=== PATIENT | female | born 1990 | race Caucasian/White ===

== ENCOUNTER 2020-03-17 14:59 | Outpatient (CLI) | payer OTHER ==
[~2020-03-17] VITALS: Ht 165.1 cm; Wt 111.1 kg
[2020-03-17] MEDS ORDERED: PRENATAL (15:27)
[2020-03-17 16:06] LABS: URINE PROTEIN:CREAT RATIO 0.2 (0.00-0.14)
--- NOTE | 2020-03-17 16:12 | NUR ---
1520 PATIENT HERE FOR NONSTRESS TEST. 24 URINE TURNED IN FOR PROTIEN, SERIAL BP. ALL BP WNL. EFM ON FHT 130 GOOD ACCELERATIONS NOTED. BABY VEREY ACTIVE. DR SALDIVAR REVIEWED MONITOR STRIP. 1600 ALL DISCHARGE INSTRUCTIONS GIVEN TO PATIENT WITH VERBAL UNDERSTANDING. DENIES NEEDS. BP 127/84
== END 2020-03-17 16:00 | disposition home or self-care (01) ==
LOC: LDRO 14:59 → LDR 15:02 → LDRO 16:00
PROVIDERS: Student in an Organized Health Care Education/Training Program
DX: O36.8931 Maternal care for other specified fetal problems, third trimester, fetus 1 (principal); Z3A.31 31 weeks gestation of pregnancy
CPT/HCPCS: OP

== ENCOUNTER 2020-05-23 11:02 | Inpatient (IN) | payer OTHER ==
[~2020-05-23] VITALS: Ht 165.1 cm; Wt 114.5 kg
[2020-05-23] VITALS (48 sets, daily range): BP systolic 133–182; BP diastolic 74–113; PULSE 71–115; TEMP 98.2–98.8
[~2020-05-23 11:02] MED LIST: PRENATAL
--- NOTE | 2020-05-23 11:43 | NUR ---
Pt here for labor check. Reports she has been leaking fluid since 1600 yesterday and having occasional non-painful contractions. FHT's found in the 130's with minimal to moderate variability and one acceleration. No contractions observed or palpated. Amniotrace negative. SVE /-3. Assessment completed. Vitals obtained. BP 142/100. Pt reports she is anxious, also states BP has been elevated off and on this .
--- NOTE | 2020-05-23 12:00 | NUR ---
PHONED DR SALDIVAR AT 1156. ORDER RECEIVED TO DO AMNISURE. AMNISURE PERFORMED AT 1200 AND SENT TO LAB. ALSO CHANGED BP MONITORING TO EVERY 15 MINUTES. PT'S IS GOING TO "DOCTOR" THE SORE ON HER LEG SINCE THE GAUZE AND TAPE HAVE CAME OFF. SORE APPEARS TO BE RED AND APPROX THE SIZE OF A NICKEL WITH NO DRAINAGE.
--- NOTE | 2020-05-23 13:00 | NUR ---
DR SALDIVAR CALLED HERE AT 1255 AND STATES AMNISURE IS POSITIVE. ORDERS RECEIVED TO ADMIT PT FOR LABOR AND DELIVERY.
--- NOTE | 2020-05-23 13:45 | NUR ---
IV STARTED IN LEFT HAND WITH LR INFUSING WITHOUT DIFFICULTY.
--- NOTE | 2020-05-23 14:00 | NUR ---
PITOCIN STARTED AT 2MU AT 1347 PER ORDER. PLAN OF CARE REVIEWED WITH PT AND WHO VERBALIZE UNDERSTANDING.
[2020-05-23 14:22] LABS: COLLECTION METHOD CLEAN CATCH
[2020-05-23 14:26] LABS: BASO % 0.1 % (0.0-2.0); EOS # 0.1 (0.0-0.7); EOS % 0.7 % (0-4.0); GRAN # 5.7 (1.4-6.5); GRAN % 76.8 % (42.2-75.2); HEMATOCRIT 37.9 % (37.0-47.0); HEMOGLOBIN 12.7 g/dl (12.5-16.0); LYMPH # 1.2 (1.2-3.4); LYMPH % 15.5 % (20.0-51.0); MEAN CELL VOLUME 84 fl (80.0-100.0); MEAN CORPUSCULAR HEMOGLOBIN 28 pg (27.0-31.0); MEAN CORPUSCULAR HGB CONC 34 g/dl (33.0-37.0); MEAN PLATELET VOLUME 9.4 fl (7.4-10.4); MONO # 0.5 (0.1-0.6); MONO % 6.5 % (1.7-9.3); PLATELET COUNT 294 K/mm3 (130-400); RED BLOOD COUNT 4.53 M/mm3 (4.10-5.30); REDCELL DISTRIBUTION WIDTH-CV 14.7 % (11.5-14.5)
[2020-05-23 14:34] LABS: MUCOUS Present /lpf; PH 7 (5-8); SQUAMOUS EPITHELIAL 0-2 /hpf; URINE APPEARANCE Clear; URINE BACTERIA None Seen /hpf; URINE BILIRUBIN Negative (NEGATIVE); URINE BLOOD Negative (NEGATIVE); URINE COLOR Yellow; URINE GLUCOSE Negative (NEGATIVE); URINE KETONE Negative (NEGATIVE); URINE LEUKOCYTE ESTERASE Negative (NEGATIVE); URINE NITRATE Negative (NEGATIVE); URINE PROTEIN(semi-quant) Negative (NEGATIVE); URINE RBC 0-2 /hpf; URINE UROBILINOGEN Negative (NEGATIVE); URINE WBC 0-2 /hpf
[2020-05-23 14:40] LABS: ALBUMIN 3.5 gm/dL (3.5-5.0); BILIRUBIN,TOTAL 0.2 mg/dL (0.0-1.0); CALCIUM 9.4 mg/dL (8.4-10.2); CREATININE, serum 0.55 (0.52-1.25); POTASSIUM 3.5 mmol/L (3.4-5.0); TOTAL PROTEIN 6.8 gm/dL (6.4-8.2)
--- NOTE | 2020-05-23 15:15 | NUR ---
WHEN ADVISING PT OF NEED FOR ANTIBIOTICS AND PT REFUSES INFORMED PT AND SPOUSE PROLONGED RUPTURE OF MEMBRANES COULD LEAD TO A SERIOUS INFECTION IN HER AND/OR THE BABY. PT STILL REFUSES ANTIBIOTICS AT THIS TIME.
--- NOTE | 2020-05-23 15:15 | NUR ---
PT ADVISED DR MAURER WANTS TO START ANTIBIOTICS DUE TO PROLONGED RUPTURE OF MEMBRANES. PT REFUSES ANTIBIOTICS AT THIS TIME AND STATES SHE MIGHT START THEM LATER.
--- NOTE | 2020-05-23 15:30 | NUR ---
PT WANTING TO STAND UP OR SIT ON BIRTHING BALL. INFORMED HER THAT IS ACCEPTABLE LONG FHT'S CAN BE MONITORED . ALSO ADVISED HER BP IS VERY HIGH AND VERY DANGEROUS. WILL MONITOR ONE MORE IN 15 MINUTES AND IF IT IS HIGH WILL PHONE DR AND LIKELY WILL GET AN ORDER FOR BP MEDICATION. PT DOES NOT REPLY WHEN INFORMED OF THIS.
--- NOTE | 2020-05-23 16:15 | NUR ---
CALLED DR MAURER AT 1607 WITH LAST 3BP'S: 173/113, 143/102, 161/105. ORDER RECEIVED TO GIVE 10MG LABETALOL IV NOW AND CAN REPEAT IN 15 MINUTES. DISCUSSED LABETALOL WITH PT WHO AGREES TO THE ADMINISTRATION.
--- NOTE | 2020-05-23 16:30 | NUR ---
SVE BY Isela BROWN RN, REMAINS UNCHANGED: REPORTS ALMOST 1CM/75/-3, CANNOT INSERT ALL OF ONE FINGER THROUGH THE CERVIX. PREVIOUS SVE BY Chinmay MARTINO RN ON ADMISSION. BP REMAINS ELEVATED. WILL ADMINISTER SECOND DOSE OF LABETALOL. PT BREATHING THROUGH CONTRACTIONS.
--- NOTE | 2020-05-23 18:20 | NUR ---
Monitors removed. Pt up to bathroom to void. Pt states she would like epidural at this time. Barrett Celaya CRNA already en route to hospital for other case. Will updated on arrival.
--- NOTE | 2020-05-23 18:35 | NUR ---
183 - Pt positioned to sitting on edge of bed. Barrett Celaya CRNA at bedside. Epidural procedure, risks, and benefits explained to patient and spouse. Pt verbalized understanding. 1834 - Single shot by Jayde Celaya CRNA. Pt denies any adverse reactions. Difficutly tracing FHR due to maternal positioning. RN attempt to hand hold US. 1841 - Pt positioned to wedge left. Reviewed safety precautions and plan of care with patient and spouse. Bed in low and locked position. Call light within reach. See anesthesia record.
--- NOTE | 2020-05-23 20:25 | NUR ---
Hernandez catheter placed at this time. Clear, yellow urine returned. Placed to dependent drainage. Secured to leg with statlock. SVE at this time. /-3, bulging bag of water, vertex position. After positioning patient in bed for comfort, pt reports feeling large gush of fluid. Moderate amount of clear fluid noted. Pericare provided.
--- NOTE | 2020-05-23 21:10 | NUR ---
2104 - Pts BP 169/104 then 163/96 15 minutes later. IV labetalol given at this time, see MAR and physician notification. 2109 - Recurrent early decelerations down to 120 bpm noted with contractions. Pt repositioned to wedge left.
--- NOTE | 2020-05-23 21:30 | NUR ---
Recurrent early and variable decelerations down to 90-120 bpm noted with contractions. SVE 6//-3. Pt repositioned to wedge right with pillow support.
--- NOTE | 2020-05-23 23:05 | NUR ---
2305 - SVE /-3 2320 - Pt continues to have recurrent variable decelerations down to 100 bpm. Attempted to reposition patient to sitting up in bed but patient became nauseous, repositioned to wedge left. Pitocin decreased to 10 mu/min.
[2020-05-24] VITALS (36 sets, daily range): BP systolic 106–174; BP diastolic 71–103; PULSE 70–126; TEMP 97.8–99.3
--- NOTE | 2020-05-24 01:15 | NUR ---
0105 - SVE 8-9//-1, pt repositioned to wedge right for comfort. 0110 - Late prolonged deceleration down to 90 bpm. 0115 - Pt repositioned to wedge left. 0119 - Pitocin off. 0120 - FHR back to baseline of 120 bpm.
--- NOTE | 2020-05-24 04:22 | NUR ---
0422 - SVE /0. Pt educated on pushing techniques, verbalized understanding. 0425 - Pt positioned into footplates. Hernandez cather removed, 900 mL clear yellow urine. 0431 - Initial push at this time. Pt pushing well with contractions.
--- NOTE | 2020-05-24 05:00 | NUR ---
Pitocin restarted at 2 mu/min.
--- NOTE | 2020-05-24 06:00 | NUR ---
Pt continues to push well with contractions. Small crown with pushes.
--- NOTE | 2020-05-24 06:30 | NUR ---
PT PUSHING WITH CONTRACTIONS. DR MAURER HERE AT 0624. POSITIONED AND PREPPED FOR DELIVERY. OF FEMALE AT 062O BY DR MAURER. PITOCIN STOPPED AFTER DELIVERY OF . BABY TO MOM'S ABDOMEN AFTER DELIVERY.
--- NOTE | 2020-05-24 09:15 | NUR ---
Pt up to bathroom with assist, voids 1000ml urine. Fundus firm, bleeding WNL. Pericare instructions given and new gown, underwear and ice pack in place. Pt up and ambulates to room 207. Denies any pain.
[2020-05-25] VITALS: BP 142/85; PULSE 93; TEMP 97.7
[2020-05-25 04:15] VITALS: BP 151/93; PULSE 92; TEMP 97.6
[2020-05-25 08:30] VITALS: BP 169/97; PULSE 93; TEMP 97.4
[2020-05-25] MEDS ORDERED: IBU800 M1 PO (08:36)
--- NOTE | 2020-05-25 09:01 | NUR ---
Initial visit; Parents thanked [employer] for offering congratulations and God's blessings for the of their daughter. [employer] thanked family for choosing [facility].
[2020-05-25 16:42] VITALS: BP 155/88; PULSE 92; TEMP 97.6
== END 2020-05-25 17:50 | disposition home or self-care (01) | DRG 806 ==
LOC: LDRO 11:02 → OB 13:12 → LDR 13:12 → OB 05-24 09:15
PROVIDERS: ADMIT Student in an Organized Health Care Education/Training Program
PROC: 10E0XZZ Delivery of Products of Conception, External Approach (ICD-10-PCS; principal; 2020-05-24)
PROC: 0KQM0ZZ Repair Perineum Muscle, Open Approach (ICD-10-PCS; 2020-05-24)
DX: O42.90 Premature rupture of membranes, unspecified as to length of time between rupture and onset of labor, unspecified weeks of gestation (principal); O10.92 Unspecified pre-existing hypertension complicating childbirth; Z37.0 Single live birth; O48.0 Post-term pregnancy; Z3A.41 41 weeks gestation of pregnancy; O99.214 Obesity complicating childbirth; E66.9 Obesity, unspecified; O70.1 Second degree perineal laceration during delivery; O99.52 Diseases of the respiratory system complicating childbirth; J45.909 Unspecified asthma, uncomplicated; Z91.19 Patient's noncompliance with other medical treatment and regimen
CPT/HCPCS: J2590; J7120